=== PATIENT | female | born 1985 | race Two or more races ===

== ENCOUNTER → 2019-04-07 | Outpatient (CLI) | payer MEDICAID | END | disposition home or self-care (01) | LOC: Rad HDHVI 14:56 | PROVIDERS: ATTEND Internal Medicine | DX: I49.5 Sick sinus syndrome (principal); I10 Essential (primary) hypertension; R55 Syncope and collapse | CPT/HCPCS: 93306 ==

== ENCOUNTER → 2019-04-28 | Outpatient (CLI) | payer MEDICAID ==
[~2019-04-28] VITALS: Ht 162.6 cm; Wt 115.2 kg
== END | disposition home or self-care (01) ==
LOC: Rad HDHVI 14:04
PROVIDERS: ATTEND Internal Medicine
DX: I10 Essential (primary) hypertension (principal); E03.9 Hypothyroidism, unspecified; E66.9 Obesity, unspecified; R55 Syncope and collapse; G40.909 Epilepsy, unspecified, not intractable, without status epilepticus; E78.5 Hyperlipidemia, unspecified
CPT/HCPCS: 78452; 93017; 96374; A9500

== ENCOUNTER → 2019-07-08 | Outpatient (CLI) | payer MEDICAID | END | disposition home or self-care (01) | LOC: XY 07:28 | PROVIDERS: ATTEND Internal Medicine | DX: I82.409 Acute embolism and thrombosis of unspecified deep veins of unspecified lower extremity (principal); R42 Dizziness and giddiness; I10 Essential (primary) hypertension | CPT/HCPCS: 78582; A9540; A9558 ==